=== PATIENT | female | born 1945 | race Asian ===

== ENCOUNTER → 2016-03-30 | Outpatient (REF) | payer MEDICARE, MEDICAID ==
[2016-03-30 11:11] LABS: ALBUMIN 3.3 g/dL (3.4-5.0); ANION GAP 13.3 MEQ/L (3-15); CALCULATED IONIZED CALCIUM 4.5 mg/dL (3.8-4.6); TOTAL PROTEIN 5.4 g/dL (6.4-8.5)
[2016-03-30 11:28] LABS: BILIRUBIN,URINE Negative (Negative); CLARITY,URINE Cloudy; COLOR,URINE Yellow; GLUCOSE, URINE (UA) Negative (Negative); LEUKOCYTE ESTERASE ,URINE 3+ (Negative); UROBILINOGEN,URINE 0.2 mg/dL (0.2-1.0)
[2016-03-30 11:37] LABS: URINE CENTRIFUGED VOLUME 12 mL
== END ==
LOC: LAB 09:56
PROVIDERS: ATTEND Family Medicine
DX: E78.2 Mixed hyperlipidemia (principal); R79.89 Other specified abnormal findings of blood chemistry; R82.99 Other abnormal findings in urine; K71.2 Toxic liver disease with acute hepatitis; G72.0 Drug-induced myopathy; E83.42 Hypomagnesemia; E03.4 Atrophy of thyroid (acquired); M12.80 Other specific arthropathies, not elsewhere classified, unspecified site
CPT/HCPCS: 80053; 80061; 81003; 81015; 82550; 82977; 83735; 84436; 84443; 84550; 87077; 87088; 87186

== ENCOUNTER → 2016-03-31 | Outpatient (REF) | payer MEDICARE, MEDICAID ==
[2016-03-31 10:49] LABS: BASOPHILS % (AUTO) 0 % (0-2); EOSINOPHILS # (AUTO) 0.3 10^3uL; EOSINOPHILS % (AUTO) 3 % (0-4); MEAN CORPUSCULAR HEMOGLOBIN 28.6 PG (26.0-34.0); MEAN CORPUSCULAR VOLUME 94 FL (80-100); MEAN PLATELET VOLUME 12.3 FL (6.0-9.5); MONOCYTES # (AUTO) 0.7 X10^3; MONOCYTES % (AUTO) 7 % (3-11); NEUTROPHILS # (AUTO) 5.8 X10^3; NEUTROPHILS % (AUTO) 66 % (51-67); PLATELET COUNT 208 10^3uL (150-450); WHITE BLOOD COUNT 8.77 10^3uL (4.0-11.0)
[2016-03-31 11:58] LABS: MEAN CORPUSCULAR HGB CONC 30.3 g/dL (31.0-37.0)
== END ==
LOC: LAB 10:15
PROVIDERS: ATTEND Family Medicine
DX: R79.89 Other specified abnormal findings of blood chemistry (principal); D50.8 Other iron deficiency anemias; R82.99 Other abnormal findings in urine; E03.4 Atrophy of thyroid (acquired); K71.2 Toxic liver disease with acute hepatitis; G72.0 Drug-induced myopathy; E83.42 Hypomagnesemia; M12.80 Other specific arthropathies, not elsewhere classified, unspecified site
CPT/HCPCS: 82306; 82728; 83036; 85025

== ENCOUNTER → 2016-04-13 | Outpatient (REF) | payer MEDICARE, MEDICAID ==
[2016-04-13 13:19] LABS: BILIRUBIN,URINE Negative (Negative); CLARITY,URINE Clear; COLOR,URINE Yellow; GLUCOSE, URINE (UA) Negative (Negative); LEUKOCYTE ESTERASE ,URINE 3+ (Negative); UROBILINOGEN,URINE 0.2 mg/dL (0.2-1.0)
[2016-04-13 13:33] LABS: URINE CENTRIFUGED VOLUME <10mL Unspun
== END ==
LOC: LAB 09:59
PROVIDERS: ATTEND Family Medicine
DX: N39.0 Urinary tract infection, site not specified (principal)
CPT/HCPCS: 81003; 81015; 87077; 87088; 87186

== ENCOUNTER → 2016-04-26 | Outpatient (REF) | payer MEDICARE, MEDICAID ==
[2016-04-26 17:01] LABS: BILIRUBIN,URINE Negative (Negative); CLARITY,URINE Clear; COLOR,URINE Yellow; GLUCOSE, URINE (UA) Negative (Negative); LEUKOCYTE ESTERASE ,URINE 1+ (Negative); PH,URINE 5.5 (5.0 - 8.0); UROBILINOGEN,URINE 0.2 mg/dL (0.2-1.0)
[2016-04-26 17:24] LABS: URINE CENTRIFUGED VOLUME 12 mL
[2016-04-26 17:26] LABS: RBC,URINE None Seen /HPF
== END ==
LOC: LAB 14:50
PROVIDERS: ATTEND Family Medicine
DX: N39.0 Urinary tract infection, site not specified (principal)
CPT/HCPCS: 81003; 81015; 87077; 87088; 87186

== ENCOUNTER → 2016-05-11 | Outpatient (REF) | payer MEDICARE, MEDICAID ==
[2016-05-11 17:39] LABS: BILIRUBIN,URINE Negative (Negative); CLARITY,URINE Cloudy; GLUCOSE, URINE (UA) Negative (Negative); LEUKOCYTE ESTERASE ,URINE Trace (Negative); UROBILINOGEN,URINE 0.2 mg/dL (0.2-1.0)
[2016-05-11 17:52] LABS: COLOR,URINE Yellow
[2016-05-11 18:05] LABS: RBC,URINE 0-2 /HPF; URINE CENTRIFUGED VOLUME 12 mL
== END ==
LOC: LAB 12:53
PROVIDERS: ATTEND Family Medicine
DX: N39.0 Urinary tract infection, site not specified (principal)
CPT/HCPCS: 81003; 81015; 87088

== ENCOUNTER → 2016-06-30 | Outpatient (REF) | payer MEDICARE, MEDICAID | LOC: LAB 16:15 | PROVIDERS: ATTEND Family Medicine | DX: E11.22 Type 2 diabetes mellitus with diabetic chronic kidney disease (principal); E55.9 Vitamin D deficiency, unspecified | CPT/HCPCS: 82306; 83036 ==

== ENCOUNTER → 2016-07-02 | Outpatient (REF) | payer MEDICARE, MEDICAID ==
[2016-07-02 16:49] LABS: BILIRUBIN,URINE Negative (Negative); CLARITY,URINE Cloudy; COLOR,URINE Yellow; GLUCOSE, URINE (UA) Negative (Negative); LEUKOCYTE ESTERASE ,URINE 1+ (Negative); PH,URINE 6.5 (5.0 - 8.0); UROBILINOGEN,URINE 0.2 mg/dL (0.2-1.0)
[2016-07-02 17:05] LABS: URINE CENTRIFUGED VOLUME 12 mL
== END ==
LOC: LAB 16:27
PROVIDERS: ATTEND Family Medicine
DX: N39.0 Urinary tract infection, site not specified (principal)
CPT/HCPCS: 81003; 81015; 87077; 87088; 87186

== ENCOUNTER → 2016-07-22 | Outpatient (REF) | payer MEDICARE, MEDICAID ==
[2016-07-22 13:55] LABS: BILIRUBIN,URINE Negative (Negative); CLARITY,URINE Cloudy; COLOR,URINE Yellow; GLUCOSE, URINE (UA) Negative (Negative); LEUKOCYTE ESTERASE ,URINE 2+ (Negative); PH,URINE 5.5 (5.0 - 8.0); UROBILINOGEN,URINE 0.2 mg/dL (0.2-1.0)
[2016-07-22 14:25] LABS: RBC,URINE 50-100 /HPF; URINE CENTRIFUGED VOLUME 12 mL
== END ==
LOC: LAB 11:50
PROVIDERS: ATTEND Family Medicine
DX: N39.0 Urinary tract infection, site not specified (principal); R82.99 Other abnormal findings in urine
CPT/HCPCS: 81003; 81015; 87077; 87088; 87186

== ENCOUNTER → 2016-08-04 | Outpatient (REF) | payer MEDICARE, MEDICAID ==
[2016-08-04 15:57] LABS: ANION GAP 15.2 MEQ/L (3-15)
== END ==
LOC: LAB 15:08
PROVIDERS: ATTEND Family Medicine
DX: R79.89 Other specified abnormal findings of blood chemistry (principal); D50.8 Other iron deficiency anemias; M81.0 Age-related osteoporosis without current pathological fracture
CPT/HCPCS: 80048; 82728

== ENCOUNTER → 2016-08-10 | Outpatient (REF) | payer MEDICARE, MEDICAID ==
[2016-08-10 12:49] LABS: BILIRUBIN,URINE Negative (Negative); CLARITY,URINE Slightly Cloudy; COLOR,URINE Yellow; GLUCOSE, URINE (UA) Negative (Negative); LEUKOCYTE ESTERASE ,URINE 1+ (Negative); PH,URINE 5.5 (5.0 - 8.0); UROBILINOGEN,URINE 0.2 mg/dL (0.2-1.0)
[2016-08-10 12:50] LABS: URINE CENTRIFUGED VOLUME <10mL Unspun
== END ==
LOC: LAB 12:03
PROVIDERS: ATTEND Family Medicine
DX: R82.99 Other abnormal findings in urine (principal)
CPT/HCPCS: 81003; 81015; 87077; 87088; 87186

== ENCOUNTER → 2016-08-17 | Outpatient (REF) | payer MEDICARE, MEDICAID ==
[2016-08-17 15:13] LABS: ANION GAP 11.4 MEQ/L (3-15)
== END ==
LOC: LAB 14:44
PROVIDERS: ATTEND Family Medicine
DX: I50.9 Heart failure, unspecified (principal)
CPT/HCPCS: 80048